=== PATIENT | female | born 1985 | race Caucasian/White ===

== ENCOUNTER 2016-11-29 09:49 | Emergency (ER) | payer MEDICAID ==
[~2016-11-29] VITALS: Ht 152.4 cm; Wt 73.0 kg
[2016-11-29 09:56] VITALS: Ht 152.4 cm; Wt 73.0 kg
[2016-11-29] MEDS ORDERED: FAMOTIDINE 20 MG INJ IV STA (10:14)
[2016-11-29] MEDS ORDERED: ONDANSETRON 4 MG INJ IV STA (10:14)
[2016-11-29] MEDS ORDERED: KETOROLAC 30 MG INJ IV STA (10:14)
--- NOTE | 2016-11-29 10:21 | ERD ---
ER Documentation Chief Complaint Date/Time DATE: 11/29/16 TIME: 10:19 Chief Complaint ABDOMINAL AND BACK PAIN HPI Sent to the emergency department today complaining of some upper abdominal pain that started last night. States she also has some back pain. States a couple of days ago she had some pain with urination. States she has had some nausea and vomiting. States the pain was worse last night and improved this morning states he was sleeping and the pain started denies any fevers or chills. ROS All systems reviewed and are negative except as per history of present illness. Medications Home Meds Active Scripts Ondansetron Hcl* (Zofran*) 4 Mg Tablet, 4 MG PO Q6H for NAUSEA AND/OR VOMITING, #30 TAB Prov:KIMO BOWMAN PA-C 11/29/16 Famotidine* (Pepcid*) 20 Mg Tablet, 20 MG PO BID for 10 Days, TAB Prov:KIMO BOWMAN PA-C 11/29/16 Ibuprofen* (Motrin*) 600 Mg Tab, 600 MG PO Q6, #30 TAB Prov:KIMO BOWMAN PA-C 11/29/16 Hydrocodone/Acetaminophen ([place] 5-325 Tablet) 1 Each Tablet, 1 TAB PO Q6H Y for PAIN, #12 TAB Prov:KIMO BOWMAN PA-C 11/29/16 Allergies Allergies: Coded Allergies: No Known Allergy (Verified , 11/29/16) PMhx/Soc Medical and Surgical Hx: pt denies Medical Hx History of Surgery: Yes (tubal ligation) Anesthesia Reaction: No Hx Neurological Disorder: No Hx Respiratory Disorders: No Hx Cardiac Disorders: No Hx Psychiatric Problems: No Hx Miscellaneous Medical Probl: No Hx Alcohol Use: Yes Hx Substance Use: No Hx Tobacco Use: No Smoking Status: Never smoker Physical Exam Vitals Vital Signs Date Time Temp Pulse Resp B/P Pulse Ox O2 Delivery O2 Flow Rate FiO2 11/29/16 09:56 98.7 100 18 140/91 98 Physical Exam Const: No acute distress Head: Atraumatic Eyes: Normal Conjunctiva ENT: Normal External Ears, Nose and Mouth. Neck: Full range of motion..~ No meningismus. Resp: Clear to auscultation bilaterally Cardio: Regular rate and rhythm, no murmurs Abd: Soft, epigastric tenderness with mild right upper quadrant tenderness, non distended. Normal bowel sounds. No tenderness at McBurney's Skin: No petechiae or rashes Back: No midline or flank tenderness Ext: No cyanosis, or edema Neur: Awake and alert Psych: Normal Mood and Affect Result Diagram: 11/29/16 1030 11/29/16 1030 Results 24 hrs Laboratory Tests Test 11/29/16 10:24 11/29/16 10:30 Urine Color YELLOW Urine Clarity CLEAR Urine pH 9.0 Urine Specific [place] 1.019 Urine Ketones NEGATIVEmg/dL Urine Nitrite NEGATIVEmg/dL Urine Bilirubin NEGATIVEmg/dL Urine Urobilinogen NEGATIVEmg/dL Urine Leukocyte Esterase NEGATIVELeu/ul Urine Hemoglobin NEGATIVEmg/dL Urine Glucose NEGATIVEmg/dL Urine Total Protein NEGATIVEmg/dl White Blood Count 10.910^3/ul Red Blood Count 4.7610^6/ul Hemoglobin 14.1g/dl Hematocrit 42.2% Mean Corpuscular Volume 88.7fl Mean Corpuscular Hemoglobin 29.6pg Mean Corpuscular Hemoglobin Concent 33.4g/dl Red Cell Distribution Width 12.6% Platelet Count 24993^3/UL Mean Platelet Volume 11.5fl Neutrophils % 80.7% Lymphocytes % 14.0% Monocytes % 4.2% Eosinophils % 0.2% Basophils % 0.6% Nucleated Red Blood Cells % 0.0/100WBC Neutrophils # 8.810^3/ul Lymphocytes # 1.510^3/ul Monocytes # 0.510^3/ul Eosinophils # 0.010^3/ul Basophils # 0.110^3/ul Nucleated Red Blood Cells # 0.010^3/ul Sodium Level 143mmol/L Potassium Level 3.6mmol/L Chloride Level 101mmol/L Carbon Dioxide Level 25mmol/L Anion Gap 21 Blood Urea Nitrogen 11mg/dl Creatinine 0.57mg/dl Glucose Level 111mg/dl Calcium Level 9.5mg/dl Total Bilirubin 0.3mg/dl Direct Bilirubin 0.00mg/dl Indirect Bilirubin 0.3mg/dl Aspartate Amino Transf (AST/SGOT) 24IU/L Alanine Aminotransferase (ALT/SGPT) 43IU/L Alkaline Phosphatase 92IU/L Total Protein 8.2g/dl Albumin 4.6g/dl Globulin 3.60g/dl Albumin/Globulin Ratio 1.27 Lipase 43U/L Current Medications Medications (Trade) Dose Ordered Sig/Gustavo Route PRN Reason Start Time Stop Time Status Last Admin Dose Admin Ondansetron HCl (Zofran Inj) 4 mg ONCE STAT IV 11/29/16 10:14 11/29/16 10:16 DC 11/29/16 10:36 Famotidine (Pepcid Iv) 20 mg ONCE STAT IV 11/29/16 10:14 11/29/16 10:16 DC 11/29/16 10:36 Ketorolac Tromethamine (Toradol) 30 mg ONCE STAT IV 11/29/16 10:14 11/29/16 10:16 DC 11/29/16 10:37 DIAGNOSTIC IMAGING REPORT Patient: TALIA ANTONY : 1985 Age: 31 Sex: F MR #: [id number] DOS: 11/29/16 1014 Ordering MD: KIMO BOWMAN PA-C Location: [facility] Room/Bed: PROCEDURE: US Abdomen. CLINICAL INDICATION: abdominal pain TECHNIQUE: Multiple real-time images were acquired of the patient's right upper quadrant abdomen and retroperitoneum utilizing a high resolution transducer. COMPARISON: None FINDINGS: The liver demonstrates increased echogenicity. The liver is normal in size and no focal solid lesions are seen. The liver measures 14.5 cm in length. The portal vein is patent with normal direction of flow. No intrahepatic biliary dilatation is seen. Multiple gallstones are identified within the gallbladder. There is no pericholecystic fluid or gallbladder wall thickening. The common bile duct measures 6 mm in maximal dimension. The pancreas is not seen due to overlying bowel gas. No free fluid is identified. The right kidney is normal in size, and demonstrate normal echogenicity and cortical thickness. The right kidney measures 9.2 cm in long dimension. There is no evidence of hydronephrosis. There are no kidney stones. RPTAT: AA IMPRESSION: Cholelithiasis with no evidence of gallbladder wall thickening or pericholecystic fluid. Fatty infiltration of the liver. Pancreas not seen due to overlying bowel gas. .Herberth Olivarez MD, MD Date Time Electronically viewed and signed by .Herberth Olivarez MD, MD on 11/29/2016 11: 10 .S/ CC: KIMO BOWMAN PA-C Procedures/[facility] This a 31-year-old female presents to the emergency department today complaining of abdominal pain and some back pain on physical exam patient had epigastric and some right upper quadrant pain and therefore did obtain laboratory work as well as a right upper quadrant ultrasound Laboratory workup shows a very mildly elevated white blood cell count. She is not anemic. Platelets are within normal limits. Electrolytes are within normal limits. Glucose within normal limits. Liver enzymes within normal limits. Bilirubin is within normal limits. Lipase is within normal limits. UA is negative for infection Urine test test is negative Right upper quadrant ultrasound shows cholelithiasis with no evidence of gallbladder wall thickening or pericholecystic fluid. There is fatty infiltration of the liver. There is no evidence of hydronephrosis or kidney stones on the right side. There is no free fluid. Common bile duct measures 6 mm in maximal dimension. Patient symptoms at this time is consistent with abdominal pain and biliary colic. I explained all results to the patient. Patient was driving herself and was therefore given Toradol, Pepcid, Zofran here in the emergency department and pain improved. She will begin a prescription for short course of [place], Motrin, Pepcid and Zofran for home At this time the patient is stable for discharge and outpatient management. Patient should follow up with their PCP in the next 1-2 days. They may return to the emergency department sooner for any persistent or worsening of symptoms. Patient understood and agreed with the plan. Departure Diagnosis: Primary Impression: Gallstones Condition: Fair KIMO BOWMAN PA-C Nov 29, 2016 10:21
[2016-11-29 10:47] LABS: BASOPHIL # 0.1 10^3/ul (0.0-0.1); BASOPHILS % 0.6 % (0.0-2.0); EOSINOPHILS % 0.2 % (0.0-7.0); HEMATOCRIT 42.2 % (37.0-47.0); HEMOGLOBIN 14.1 g/dl (12.0-16.0); LYMPHOCYTES # 1.5 10^3/ul (0.8-2.9); MEAN CORPUSCULAR HEMOGLOBIN 29.6 pg (29.0-33.0); MEAN CORPUSCULAR HGB CONC 33.4 g/dl (32.0-37.0); MEAN CORPUSCULAR VOLUME 88.7 fl (82.0-101.0); MEAN PLATELET VOLUME 11.5 fl (7.4-10.4); MONOCYTE # 0.5 10^3/ul (0.3-0.9); MONOCYTES % 4.2 % (0.0-11.0); NEUTROPHIL # 8.8 10^3/ul (1.6-7.5); NEUTROPHILS % 80.7 % (39.0-77.0); PLATELET COUNT 249 10^3/UL (140-415); RED BLOOD COUNT 4.76 10^6/ul (4.20-5.40); RED CELL DISTRIBUTION WIDTH 12.6 % (11.5-14.5); WHITE BLOOD COUNT 10.9 10^3/ul (4.8-10.8)
[2016-11-29 10:53] LABS: ADD UMIC NO; UR ASCORBIC ACID NEGATIVE (NEGATIVE); UR BILIRUBIN (Dip) NEGATIVE (NEGATIVE); UR BLOOD (Dip) NEGATIVE (NEGATIVE); UR CLARITY CLEAR (CLEAR); UR COLOR YELLOW (YELLOW); UR GLUCOSE (Dip) NEGATIVE (NEGATIVE); UR KETONES (Dip) NEGATIVE (NEGATIVE); UR LEUKOCYTE ESTERASE (Dip) NEGATIVE Leu/ul (NEGATIVE); UR NITRITE (Dip) NEGATIVE (NEGATIVE); UR SPECIFIC GRAVITY (Dip) 1.019 (1.003-1.030); UR TOTAL PROTEIN (Dip) NEGATIVE (NEGATIVE); UR UROBILINOGEN (Dip) NEGATIVE (NEGATIVE)
[2016-11-29 11:09] LABS: ALBUMIN 4.6 g/dl (3.3-4.9); ALBUMIN/GLOBULIN RATIO 1.27; BILIRUBIN,INDIRECT 0.3 mg/dl (0-1.1); BILIRUBIN,TOTAL 0.3 mg/dl (0.2-1.3); CALCIUM 9.5 mg/dl (8.4-10.2); CREATININE 0.57 mg/dl (0.44-1.00); POTASSIUM 3.6 mmol/L (3.5-5.1); TOTAL PROTEIN 8.2 g/dl (6.1-8.1)
--- NOTE | 2016-11-29 11:10 | RADRPT ---
PROCEDURE: US Abdomen. CLINICAL INDICATION: abdominal pain TECHNIQUE: Multiple real-time images were acquired of the patient's right upper quadrant abdomen a nd retroperitoneum utilizing a high resolution transducer. COMPARISON: None FINDINGS: The liver demonstrates increased echogenicity. The liver is normal in size and no focal solid lesio ns are seen. The liver measures 14.5 cm in length. The portal vein is patent with normal direction o f flow. No intrahepatic biliary dilatation is seen. Multiple gallstones are identified within the gallbladder. There is no pericholecystic fluid or gal lbladder wall thickening. The common bile duct measures 6 mm in maximal dimension. The pancreas is not seen due to overlying bowel gas. No free fluid is identified. The right kidney is normal in size, and demonstrate normal echogenicity and cortical thickness. The right kidney measures 9.2 cm in long dimension. There is no evidence of hydronephrosis. There are no kidney stones. RPTAT: AA IMPRESSION: Cholelithiasis with no evidence of gallbladder wall thickening or pericholecystic fluid. Fatty infiltration of the liver. Pancreas not seen due to overlying bowel gas. .Herberth Olivarez MD, MD Date Time Electronically viewed and signed by .Herberth Olivarez MD, on 11/29/2016 11:10 .S/
[2016-11-29] MEDS ORDERED: IBUP-1542 PO (11:42)
[2016-11-29] MEDS ORDERED: ONDA4TAB8 PO (11:42)
[2016-11-29] MEDS ORDERED: HYDR-906 PO (11:42)
[2016-11-29] MEDS ORDERED: FAMO-96 PO (11:42)
== END 2016-11-29 11:49 | disposition home or self-care (01) ==
LOC: FTE 09:49
DX: K80.20 Calculus of gallbladder without cholecystitis without obstruction (principal); R11.2 Nausea with vomiting, unspecified
CPT/HCPCS: 36415; 76705; 80053; 81003; 83690; 85025; 96374; 96375; J1885; J2405; Z7502; Z7610